=== PATIENT | female | born 1945 | race Caucasian/White ===

== ENCOUNTER 2017-07-17 17:05 | Emergency (ER) | payer BC, MEDICARE ==
[~2017-07-17] VITALS: Ht 165.1 cm; Wt 60.0 kg
[2017-07-17 17:50] VITALS: BP 146/86; PULSE 116; RESP 16; TEMP 97.9; O2SAT 95
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
[2017-07-17] MEDS ORDERED: METO1TAB42 PO (18:58)
[2017-07-17 19:13] LABS: AUTOMATED NEUTROPHIL # 5.1 TH/MM3 (1.8-7.7); BASOPHIL # 0.1 TH/MM3 (0-0.2); BASOPHIL % 1.5 % (0.0-2.0); EOSINOPHIL # 0.1 TH/MM3 (0-0.4); EOSINOPHIL % 1.1 % (0.0-4.0); HEMATOCRIT 33.6 % (35.0-46.0); HEMOGLOBIN 11.4 GM/DL (11.6-15.3); LYMPH % 16.1 % (9.0-44.0); LYMPHOCYTE # 1.1 TH/MM3 (1.0-4.8); MEAN CORPUSCULAR HGB CONC 34.1 % (32.0-36.0); MEAN PLATELET VOLUME 7.8 FL (7.0-11.0); MONO % 6.5 % (0.0-8.0); MONOCYTE # 0.4 TH/MM3 (0-0.9); NEUT % 74.8 % (16.0-70.0); PLATELET COUNT 197 TH/MM3 (150-450); RED BLOOD COUNT 3.57 MIL/MM3 (4.00-5.30); RED CELL DISTRIBUTION WIDTH 17.8 % (11.6-17.2); WHITE BLOOD COUNT 6.8 TH/MM3 (4.0-11.0)
[2017-07-17 19:20] LABS: INTERNATIONAL NORMALIZED RATIO 1.2 RATIO; PROTHROMBIN TIME - PATIENT 12.2 SEC (9.8-11.6)
--- NOTE | 2017-07-17 19:40 | RADRPT ---
EXAM DATE/TIME: 07/17/2017 18:39 [facility] COMPARISON: No previous studies available for comparison. INDICATIONS : Fall. MEDICAL HISTORY : None. SURGICAL HISTORY : None. ENCOUNTER: Initial ACUITY: 2 days PAIN SCORE: 0/10 LOCATION: Bilateral chest FINDINGS: Single AP view of the chest. Elevation of right diaphragm. Right lower lung atelectasis. Lungs otherw ise clear. Cardiomediastinal silhouette within normal limits. No evidence of pleural effusion or pneu mothorax. CONCLUSION: Elevation of right hemidiaphragm and right lower lung atelectasis. Stefan Centeno MD on July 17, 2017 at 19:37 Board Certified Radiologist. This report was verified electronically.
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
[2017-07-17 19:57] LABS: BICARBONATE 19.3 MEQ/L (21.0-32.0); CALCIUM 7.6 MG/DL (8.5-10.1); CREATININE 0.52 MG/DL (0.50-1.00); MAGNESIUM 1.2 MG/DL (1.5-2.5)
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
[2017-07-17] MEDS ORDERED: POTASSIUM CHLORIDE 20 MEQ CONTROLLED RELEASE TAB PO ONE (20:30)
[2017-07-17] MEDS ORDERED: SODIUM CHLORID 0.9% 500 ML INJ 500 ML IV ONE (20:30)
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
[2017-07-18 07:01] VITALS: BP 128/72; PULSE 81; RESP 15; O2SAT 98
== END 2017-07-18 08:49 | disposition home or self-care (01) ==
LOC: NEPE 17:05 → NEPB 07-18 08:49
DX: S00.93XA Contusion of unspecified part of head, initial encounter (principal); F10.920 Alcohol use, unspecified with intoxication, uncomplicated; E87.6 Hypokalemia; Y04.0XXA Assault by unarmed brawl or fight, initial encounter; Y90.8 Blood alcohol level of 240 mg/100 ml or more
CPT/HCPCS: 70450; 70486; 71045; 72125; 72170; 80048; 80307; 83735; 85025; 85610; 85730; 96360; 99285; J7040